=== PATIENT | male | born 1935 | race Caucasian/White ===

== ENCOUNTER 2017-09-01 06:38 | Inpatient (IN) | payer MEDICARE, OTHER ==
[~2017-09-01] VITALS: Ht 182.9 cm; Wt 77.1 kg
[2017-09-01] MEDS ORDERED: Morphine Sulfate 4mg/ml Inj IVP ONE ×3 (07:00→10:30)
--- NOTE | 2017-09-01 07:26 | Emergency Room Report ---
History of Present Illness General Chief Complaint: Pain Source: Patient Present Illness HPI 81-year-old male, history of Crohn's disease/ulcerative colitis, with colostomy for a very long time, presenting with 3 days of generalized body pain. Patient complaining of abdominal pain, as well as left-sided back pain radiating down to left leg. Does not know if he has had fever or chills. States that he has been eating less. Complains of nausea but no vomiting. No diarrhea. Denies any chest pain or shortness of breath. No numbness or tingling of his legs. States that his left back hurts more when he moves. However has still been able to walk. No history of IV drug abuse. No urinary retention. No saddle anesthesia. No trauma Allergies: Coded Allergies: No Known Allergies (Unverified , 09/01/17) Patient History Past Medical History: see triage record Past Surgical History: none Pertinent Family History: none Reviewed Nursing Documentation: PMH: Agreed, PSxH: Agreed Nursing Documentation-PMH Past Medical History: No History, Except For Review of Systems All Other Systems: negative except mentioned in HPI Physical Exam Vital Signs Date Time Temp Pulse Resp B/P (MAP) Pulse Ox O2 Delivery O2 Flow Rate FiO2 09/01/17 06:34 64 18 164/82 98 Room Air Sp02 EP Interpretation: reviewed, normal General Appearance: alert, GCS 15, non-toxic, mild distress Head: normocephalic, atraumatic Eyes: bilateral eye normal inspection, bilateral eye PERRL, bilateral eye EOMI ENT: normal ENT inspection, normal pharynx, normal voice, moist mucus membranes Neck: normal inspection, full range of motion, supple Respiratory: normal inspection, lungs clear, normal breath sounds, no respiratory distress, no retraction, no wheezing, speaking full sentences, chest symmetrical Cardiovascular #1: normal inspection, regular rate, rhythm, no edema, normal capillary refill Cardiovascular #2: 2+ radial (R), 2+ radial (L) Gastrointestinal: other - Soft abdomen, and generalized tenderness, normal bowel sounds, colostomy noted in left abdomen Genitourinary: no CVA tenderness Musculoskeletal: other - Left-sided paraspinal lower lumbar tenderness, no midline tenderness, limited range of motion of the left hip secondary to pain Neurologic: alert, oriented x3, responsive, motor strength/tone normal, other - cannot assess gait as pt in too much pain Psychiatric: normal inspection, judgement/insight normal, memory normal Skin: normal inspection, normal color, no rash, warm/dry, well hydrated, normal turgor Medical Decision Making Diagnostic Impression: Primary Impression: Generalized pain Additional Impressions: Abdominal pain Back pain ER Course 81-year-old male with abdominal pain and back pain Differential Diagnosis: Gastritis, gastroenteritis, cholecystitis, appendicitis, diverticulitis, SBO, mesenteric ischemia, cardiac, UTI/pyelo, AAA musculoskeletal back pain vs. muscular strain vs. sciatica vs Lumbar/hip fracture Serious diagnoses such as cord compression, cauda equina, epidural abscess less likely in this patient given the clinical scenario and abscess of neurological symptoms or findings. Patient appears nontoxic. Plan: Basic labs, ua, ekg pain control, IVF CT abdopelvis ER course: Patient has remained HD stable during ED stay. remains aox3, just complaining of generalized pain attempted to perform CT scan however patient will not lie flat for procedure. attempted x 2 to get scan but patient not cooperative despitre given pain medications US performed - no AAA given NS with K IV Disposition: Patient will be admitted to med surg. Discussed with hospitalist Dr Chin Please note that this Emergency Department Report was dictated using [employer] helper technology software, occasionally this can lead to erroneous entry secondary to interpretation by the dictation equipment EKG Diagnostic Results EP Interpretation: Yes Rate: normal Rhythm: NSR ST Segments: No acute changes ASA given to patient: No Rhythm Strip EP Interpretation: Yes Rate: 70 Rhythm: NSR, no PVCs, no ectopy Chest X-ray CXR: Ordered: Yes 1 view Indication: Chest pain EP interpretation: Yes Interpretation: No consolidation, no effusion, no PTX, no acute cardiopulmonary disease Impression: No acute disease Electronically signed by Baldemar Patel MD Laboratory Tests Test 09/01/17 07:00 09/01/17 10:34 White Blood Count 8.5 K/UL (4.8-10.8) Red Blood Count 4.85 M/UL (4.70-6.10) Hemoglobin 16.1 G/DL (14.2-18.0) Hematocrit 49.0 % (42.0-52.0) Mean Corpuscular Volume 101 FL (80-99) H Mean Corpuscular Hemoglobin 33.1 PG (27.0-31.0) H Mean Corpuscular Hemoglobin Concent 32.8 G/DL (32.0-36.0) Red Cell Distribution Width 12.6 % (11.6-14.8) Platelet Count 139 K/UL (150-450) L Mean Platelet Volume 9.5 FL (6.5-10.1) Neutrophils (%) (Auto) % (45.0-75.0) Lymphocytes (%) (Auto) % (20.0-45.0) Monocytes (%) (Auto) % (1.0-10.0) Eosinophils (%) (Auto) % (0.0-3.0) Basophils (%) (Auto) % (0.0-2.0) Differential Total Cells Counted 100 Neutrophils % (Manual) 89 % (45-75) H Lymphocytes % (Manual) 6 % (20-45) L Monocytes % (Manual) 5 % (1-10) Eosinophils % (Manual) 0 % (0-3) Basophils % (Manual) 0 % (0-2) Band Neutrophils 0 % (0-8) Platelet Estimate Decreased L Platelet Morphology Normal Macrocytosis 1+ Sodium Level 146 MMOL/L (136-145) H Potassium Level 2.7 MMOL/L (3.5-5.1) *L Chloride Level 112 MMOL/L (98-107) H Carbon Dioxide Level 23 MMOL/L (21-32) Anion Gap 11 mmol/L (5-15) Blood Urea Nitrogen 9 mg/dL (7-18) Creatinine 0.8 MG/DL (0.55-1.30) Estimate Glomerular Filtration Rate mL/min (>60) Glucose Level 128 MG/DL (74-106) H Calcium Level 6.6 MG/DL (8.5-10.1) L Total Bilirubin 0.4 MG/DL (0.2-1.0) Aspartate Amino Transferase (AST) 16 U/L (15-37) Alanine Aminotransferase (ALT) 13 U/L (12-78) Alkaline Phosphatase 51 U/L (46-116) Troponin I 0.000 ng/mL (0.000-0.056) Total Protein 6.0 G/DL (6.4-8.2) L Albumin 2.9 G/DL (3.4-5.0) L Globulin 3.1 g/dL Albumin/Globulin Ratio 0.9 (1.0-2.7) L Lipase 47 U/L (73-393) L Urine Color Pale yellow Urine Appearance Clear Urine pH 6.5 (4.5-8.0) Urine Specific [place] 1.015 (1.005-1.035) Urine Protein 2+ (NEGATIVE) H Urine Glucose (UA) Negative (NEGATIVE) Urine Ketones Negative (NEGATIVE) Urine Occult Blood 2+ (NEGATIVE) H Urine Nitrite Negative (NEGATIVE) Urine Bilirubin Negative (NEGATIVE) Urine Urobilinogen Normal MG/DL (0.0-1.0) Urine Leukocyte Esterase Negative (NEGATIVE) Urine RBC 10-15 /HPF (0 - 0) H Urine WBC 0-2 /HPF (0 - 0) Urine Squamous Epithelial Cells Occasional /LPF Urine Bacteria Occasional /HPF (NONE) CT/MRI/US Diagnostic Results CT/MRI/US Diagnostic Results : Imaging Test Ordered: US aorta Impression Findings: The aorta is mildly ectatic and shows mural calcification and irregularity. Maximum diameter of the aorta is 2.7 cm distally. The area of the aortic bifurcation is not visualized due to bowel gas. The visualized portions of the common iliac arteries appear normal in caliber. IMPRESSION: Atherosclerotic vascular disease. No definite aneurysm with some limitations as discussed above. Last Vital Signs Date Time Temp Pulse Resp B/P (MAP) Pulse Ox O2 Delivery O2 Flow Rate FiO2 09/01/17 06:34 64 18 164/82 98 Room Air Disposition: ADMITTED INPATIENT Condition: Serious Scripts Unable to Obtain Active Prescriptions or Reported Meds Baldemar Patel M.D. Sep 01, 2017 07:25
[2017-09-01 07:42] LABS: HEMOGLOBIN 16.1 G/DL (14.2-18.0); MEAN CORPUSCULAR VOLUME 101 FL (80-99); PLATELET COUNT 139 K/UL (150-450); RED BLOOD COUNT 4.85 M/UL (4.70-6.10); RED CELL DISTRIBUTION WIDTH 12.6 % (11.6-14.8); WHITE BLOOD COUNT 8.5 K/UL (4.8-10.8)
[2017-09-01 07:44] VITALS: BP 162/92
[2017-09-01 07:57] LABS: ALANINE AMINOTRANSFERASE 13 U/L (12-78); ALBUMIN 2.9 G/DL (3.4-5.0); ALBUMIN/GLOBULIN RATIO 0.9 (1.0-2.7); ALKALINE PHOSPHATASE 51 U/L (46-116); ANION GAP 11 mmol/L (5-15); ASPARTATE AMINO TRANSFERASE 16 U/L (15-37); BILIRUBIN,TOTAL 0.4 MG/DL (0.2-1.0); BLOOD UREA NITROGEN 9 mg/dL (7-18); CALCIUM 6.6 MG/DL (8.5-10.1); CARBON DIOXIDE 23 MMOL/L (21-32); CHLORIDE 112 MMOL/L (98-107); CREATININE 0.8 MG/DL (0.55-1.30); POTASSIUM 2.7 MMOL/L (3.5-5.1); SODIUM 146 MMOL/L (136-145)
[2017-09-01] MEDS: NS w/KCl 20mEq 1,000 ML IV SCH ×2 (08:40→09:41)
[2017-09-01] MEDS ORDERED: Methocarbamol 750mg tab ORAL ONE (09:00)
--- NOTE | 2017-09-01 10:06 | Diagnostic Imaging Report ---
Indication: Chest pain Comparison: None A single view chest radiograph was obtained. Findings: No definite infiltrate or pulmonary vascular congestion identified. The heart is normal in size. The aorta is mildly enlarged consistent with atherosclerotic vascular disease. The bones are osteopenic. Impression: No acute disease
[2017-09-01 10:45] LABS: APPEARANCE,URINE CLEAR; BILIRUBIN, URINE NEGATIVE (NEGATIVE); COLOR,URINE PALE YELLOW; GLUCOSE, URINE (UA) NEGATIVE (NEGATIVE); KETONES,URINE NEGATIVE (NEGATIVE); LEUKOCYTE ESTERASE ,URINE NEGATIVE (NEGATIVE); NITRITE,URINE NEGATIVE (NEGATIVE); PH,URINE 6.5 (4.5-8.0); PROTEIN,URINE 2+ (NEGATIVE); UROBILINOGEN,URINE NORMAL MG/DL (0.0-1.0)
--- NOTE | 2017-09-01 12:14 | Diagnostic Imaging Report ---
Indication:Abdominal pain Technique: Grayscale and duplex Doppler imaging of the abdominal aorta performed. Comparison: None Findings: The aorta is mildly ectatic and shows mural calcification and irregularity. Maximum diameter of the aorta is 2.7 cm distally. The area of the aortic bifurcation is not visualized due to bowel gas. The visualized portions of the common iliac arteries appear normal in caliber. IMPRESSION: Atherosclerotic vascular disease. No definite aneurysm with some limitations as discussed above.
[2017-09-01 13:48] VITALS: BP 118/99
[2017-09-01] MEDS ORDERED: Miralax 17gm pkt ORAL PRN (15:00)
[2017-09-01] MEDS ORDERED: Mylanta II UD 30ml ORAL PRN (15:00)
[2017-09-01 15:48] VITALS: BP 153/77
[2017-09-01] MEDS: Morphine Sulfate 2mg/ml Inj IVP PRN (17:15)
--- NOTE | 2017-09-01 18:00 | History and Physical ---
History of Present Illness General Date patient seen: Sep 01, 2017 Reason for Hospitalization: Pain Present Illness HPI 81-year-old male with history of Crohn's disease/ulcerative colitis, with colectomy and colostomy for a very long time, presenting with 3 days of generalized body pain. Patient complaining of abdominal pain, as well as left- sided back pain radiating down to left leg. States that he has been eating less. Complains of nausea but no vomiting. No diarrhea. Denies any chest pain or shortness of breath. No numbness or tingling of his legs. States that his left back hurts more when he moves. However has still been able to walk. No history of IV drug abuse. No urinary retention. No saddle anesthesia. No trauma Allergies: Coded Allergies: No Known Allergies (Unverified , 09/01/17) Medication History Unable to Obtain Active Prescriptions or Reported Meds Patient History Healthcare decision maker Resuscitation status Full Code Advanced Directive on File Past Medical/Surgical History Past Medical/Surgical History: (1) Severe malnutrition (2) History of Crohn's disease Review of Systems Constitutional: Reports: malaise, weakness Gastrointestinal: Reports: abdominal pain Physical Exam General Appearance: cachetic Lines, tubes and drains: peripheral HEENT: normocephalic, atraumatic Neck: non-tender, normal alignment Respiratory/Chest: chest wall non-tender, lungs clear Breasts: no masses Cardiovascular/Chest: normal peripheral pulses Abdomen: normal bowel sounds, non tender Genitourinary/Rectal: normal genital exam Extremities: normal range of motion Skin Exam: normal pigmentation Last 24 Hour Vital Signs Date Time Temp Pulse Resp B/P (MAP) Pulse Ox O2 Delivery O2 Flow Rate FiO2 09/01/17 17:15 98.1 09/01/17 15:48 98.1 69 20 153/77 97 09/01/17 14:09 71 14 118/99 98 Room Air 09/01/17 13:48 71 14 118/99 98 Room Air 09/01/17 07:44 71 15 162/92 98 Room Air 09/01/17 06:34 64 18 164/82 98 Room Air Laboratory Tests Test 09/01/17 07:00 09/01/17 10:34 White Blood Count 8.5 K/UL (4.8-10.8) Red Blood Count 4.85 M/UL (4.70-6.10) Hemoglobin 16.1 G/DL (14.2-18.0) Hematocrit 49.0 % (42.0-52.0) Mean Corpuscular Volume 101 FL (80-99) H Mean Corpuscular Hemoglobin 33.1 PG (27.0-31.0) H Mean Corpuscular Hemoglobin Concent 32.8 G/DL (32.0-36.0) Red Cell Distribution Width 12.6 % (11.6-14.8) Platelet Count 139 K/UL (150-450) L Mean Platelet Volume 9.5 FL (6.5-10.1) Neutrophils (%) (Auto) % (45.0-75.0) Lymphocytes (%) (Auto) % (20.0-45.0) Monocytes (%) (Auto) % (1.0-10.0) Eosinophils (%) (Auto) % (0.0-3.0) Basophils (%) (Auto) % (0.0-2.0) Differential Total Cells Counted 100 Neutrophils % (Manual) 89 % (45-75) H Lymphocytes % (Manual) 6 % (20-45) L Monocytes % (Manual) 5 % (1-10) Eosinophils % (Manual) 0 % (0-3) Basophils % (Manual) 0 % (0-2) Band Neutrophils 0 % (0-8) Platelet Estimate Decreased L Platelet Morphology Normal Macrocytosis 1+ Sodium Level 146 MMOL/L (136-145) H Potassium Level 2.7 MMOL/L (3.5-5.1) *L Chloride Level 112 MMOL/L (98-107) H Carbon Dioxide Level 23 MMOL/L (21-32) Anion Gap 11 mmol/L (5-15) Blood Urea Nitrogen 9 mg/dL (7-18) Creatinine 0.8 MG/DL (0.55-1.30) Estimat Glomerular Filtration Rate mL/min (>60) Glucose Level 128 MG/DL (74-106) H Calcium Level 6.6 MG/DL (8.5-10.1) L Total Bilirubin 0.4 MG/DL (0.2-1.0) Aspartate Amino Transf (AST/SGOT) 16 U/L (15-37) Alanine Aminotransferase (ALT/SGPT) 13 U/L (12-78) Alkaline Phosphatase 51 U/L (46-116) Troponin I 0.000 ng/mL (0.000-0.056) Total Protein 6.0 G/DL (6.4-8.2) L Albumin 2.9 G/DL (3.4-5.0) L Globulin 3.1 g/dL Albumin/Globulin Ratio 0.9 (1.0-2.7) L Lipase 47 U/L (73-393) L Urine Color Pale yellow Urine Appearance Clear Urine pH 6.5 (4.5-8.0) Urine Specific [place] 1.015 (1.005-1.035) Urine Protein 2+ (NEGATIVE) H Urine Glucose (UA) Negative (NEGATIVE) Urine Ketones Negative (NEGATIVE) Urine Occult Blood 2+ (NEGATIVE) H Urine Nitrite Negative (NEGATIVE) Urine Bilirubin Negative (NEGATIVE) Urine Urobilinogen Normal MG/DL (0.0-1.0) Urine Leukocyte Esterase Negative (NEGATIVE) Urine RBC 10-15 /HPF (0 - 0) H Urine WBC 0-2 /HPF (0 - 0) Urine Squamous Epithelial Cells Occasional /LPF Urine Bacteria Occasional /HPF (NONE) Height (Feet): 6 Height (Inches): 0.00 Weight (Pounds): 170 Medications Current Medications Medications (Trade) Dose Ordered Sig/Curtis Route PRN Reason Start Time Stop Time Status Last Admin Dose Admin Acetaminophen (Tylenol) 650 mg Q4H PRN ORAL fever 09/01/17 15:00 10/01/17 14:59 Al Hydroxide/Mg Hydroxide (Mylanta II) 30 ml Q6H PRN ORAL dyspepsia 09/01/17 15:00 10/01/17 14:59 Dextrose (Dextrose 50%) STAT PRN IV Hypoglycemia 09/01/17 15:00 10/01/17 14:59 Lorazepam (Ativan 2mg/ml 1ml) 0.5 mg Q4H PRN IV For Anxiety 09/01/17 15:00 09/08/17 14:59 Morphine Sulfate (Morphine Sulfate) 1 mg Q4H PRN IVP Moderate to Severe Pain 09/01/17 15:00 09/08/17 14:59 09/01/17 17:15 Ondansetron HCl (Zofran) 4 mg Q6H PRN IVP Nausea & Vomiting 09/01/17 15:00 10/01/17 14:59 09/01/17 15:59 Polyethylene Glycol (Miralax) 17 gm HSPRN PRN ORAL Constipation 09/01/17 15:00 10/01/17 14:59 Zolpidem Tartrate (Ambien) 5 mg HSPRN PRN ORAL Insomnia 09/01/17 15:00 09/08/17 14:59 Assessment/Plan Problem List: (1) Abdominal pain ICD Codes: R10.9 - Unspecified abdominal pain SNOMED: 25483142 (2) Severe malnutrition ICD Codes: E43 - Unspecified severe protein-calorie malnutrition SNOMED: 56256384 (3) History of Crohn's disease ICD Codes: Z87.19 - Personal history of other diseases of the digestive system SNOMED: 858861410867227 Assessment/Plan npo Iv fluids GI evaluation symptomatic treatment CIELO ORTIZ Sep 01, 2017 17:59
[2017-09-01 19:40] VITALS: BP 154/88
[2017-09-01 23:23] VITALS: BP 134/63
[2017-09-02] MEDS: Morphine Sulfate 2mg/ml Inj IVP PRN (00:47)
[2017-09-02] MEDS: Zolpidem 5mg tab ORAL PRN ×2 (03:04→22:13)
[2017-09-02 04:00] VITALS: BP 149/83
[2017-09-02 07:18] LABS: BASOPHILS % (AUTO) 0.3 % (0.0-2.0); EOSINOPHILS % (AUTO) 0.6 % (0.0-3.0); HEMATOCRIT 44.4 % (42.0-52.0); HEMOGLOBIN 15.3 G/DL (14.2-18.0); LYMPHOCYTES % (AUTO) 12.2 % (20.0-45.0); MEAN CORPUSCULAR VOLUME 100 FL (80-99); MONOCYTES % (AUTO) 12.9 % (1.0-10.0); NEUTROPHILS % (AUTO) 73.9 % (45.0-75.0); PLATELET COUNT 166 K/UL (150-450); RED BLOOD COUNT 4.44 M/UL (4.70-6.10); RED CELL DISTRIBUTION WIDTH 12.5 % (11.6-14.8)
[2017-09-02 07:38] LABS: ALANINE AMINOTRANSFERASE 15 U/L (12-78); ALBUMIN 3.6 G/DL (3.4-5.0); ALBUMIN/GLOBULIN RATIO 0.9 (1.0-2.7); ALKALINE PHOSPHATASE 62 U/L (46-116); ANION GAP 9 mmol/L (5-15); ASPARTATE AMINO TRANSFERASE 23 U/L (15-37); BILIRUBIN,TOTAL 0.9 MG/DL (0.2-1.0); BLOOD UREA NITROGEN 15 mg/dL (7-18); CALCIUM 9.2 MG/DL (8.5-10.1); CARBON DIOXIDE 28 MMOL/L (21-32); CHLORIDE 102 MMOL/L (98-107); CHOLESTEROL 187 MG/DL (< 200); CREATININE 1.1 MG/DL (0.55-1.30); HDL CHOLESTEROL 64 MG/DL (40-60); POTASSIUM 3.3 MMOL/L (3.5-5.1); SODIUM 139 MMOL/L (136-145); TRIGLYCERIDES 99 MG/DL (30-150)
[2017-09-02 08:09] VITALS: BP 103/60
[2017-09-02] MEDS ORDERED: Levofloxacin 500mg tab ORAL ONE (09:36)
[2017-09-02 11:47] VITALS: BP 122/61
[2017-09-02 15:27] VITALS: BP 100/51
--- NOTE | 2017-09-02 15:35 | GI Initial Consult Note ---
Amanda Beckford N.P. 09/02/17 1535: History of Present Illness General Date patient seen: Sep 02, 2017 Time patient seen: 15:18 Reason for Hospitalization: Pain Referring physician: CIELO TOHRNE Reason for Consultation: CROHNS Present Illness HPI 81-year-old male, history of Crohn's disease/ulcerative colitis, with colostomy for a very long time, presenting with 3 days of generalized body pain. Patient complaining of abdominal pain, as well as left-sided back pain radiating down to left leg. Does not know if he has had fever or chills. States that he has been eating less. Complains of nausea but no vomiting. No diarrhea. Denies any chest pain or shortness of breath. No numbness or tingling of his legs. States that his left back hurts more when he moves. However has still been able to walk. No history of IV drug abuse. No urinary retention. No saddle anesthesia. No trauma. GI consulted for crohn's/ulcerative. Pt seen on floor, awake A&Ox4 NAD with no active s/sx of N/V/D. Stated he had excruciating generalized pain yesterday that made him crunch up into a position. Patient was unable to localize the source of pain and stated it was all over. He has a history of Crohn's vs UC, but has had a total colectomy s/p ileostomy placement. Abdomen assessed with noted ventral hernias. Abdominal U/S was performed, negative for AAA. In addition the patient c/o of poor PO intake, states that when he eats he becomes nauseated and vomits his food. Has problems urinating. Patient does not take any medication except for his HTN. Home Meds Unable to Obtain Active Prescriptions or Reported Meds Med list reviewed/reconciled: Yes Allergies: Coded Allergies: No Known Allergies (Unverified , 09/01/17) Patient History History Provided By: Patient, Medical Record PMH Narrative Past Medical History: see triage record Past Surgical History: none Pertinent Family History: none Reviewed Nursing Documentation: PMH: Agreed, PSxH: Agreed Nursing Documentation-PMH Past Medical History: No History, Except For Social History: Denies: smoking, alcohol use, drug use, other Review of Systems All Other Systems: negative except mentioned in HPI Physical Exam Vital Signs Date Time Temp Pulse Resp B/P (MAP) Pulse Ox O2 Delivery O2 Flow Rate FiO2 09/01/17 06:34 64 18 164/82 98 Room Air 09/01/17 15:00 98.1 Sp02 EP Interpretation: reviewed, normal Labs Laboratory Tests Test 09/02/17 04:55 White Blood Count 11.0 K/UL (4.8-10.8) H Red Blood Count 4.44 M/UL (4.70-6.10) L Hemoglobin 15.3 G/DL (14.2-18.0) Hematocrit 44.4 % (42.0-52.0) Mean Corpuscular Volume 100 FL (80-99) H Mean Corpuscular Hemoglobin 34.4 PG (27.0-31.0) H Mean Corpuscular Hemoglobin Concent 34.4 G/DL (32.0-36.0) Red Cell Distribution Width 12.5 % (11.6-14.8) Platelet Count 166 K/UL (150-450) Mean Platelet Volume 9.2 FL (6.5-10.1) Neutrophils (%) (Auto) 73.9 % (45.0-75.0) Lymphocytes (%) (Auto) 12.2 % (20.0-45.0) L Monocytes (%) (Auto) 12.9 % (1.0-10.0) H Eosinophils (%) (Auto) 0.6 % (0.0-3.0) Basophils (%) (Auto) 0.3 % (0.0-2.0) Sodium Level 139 MMOL/L (136-145) Potassium Level 3.3 MMOL/L (3.5-5.1) L Chloride Level 102 MMOL/L (98-107) Carbon Dioxide Level 28 MMOL/L (21-32) Anion Gap 9 mmol/L (5-15) Blood Urea Nitrogen 15 mg/dL (7-18) Creatinine 1.1 MG/DL (0.55-1.30) Estimat Glomerular Filtration Rate mL/min (>60) Glucose Level 116 MG/DL (74-106) H Calcium Level 9.2 MG/DL (8.5-10.1) # Total Bilirubin 0.9 MG/DL (0.2-1.0) Aspartate Amino Transf (AST/SGOT) 23 U/L (15-37) Alanine Aminotransferase (ALT/SGPT) 15 U/L (12-78) Alkaline Phosphatase 62 U/L (46-116) Total Protein 7.7 G/DL (6.4-8.2) Albumin 3.6 G/DL (3.4-5.0) Globulin 4.1 g/dL Albumin/Globulin Ratio 0.9 (1.0-2.7) L Triglycerides Level 99 MG/DL (30-150) Cholesterol Level 187 MG/DL (< 200) LDL Cholesterol 113 mg/dL (<100) H HDL Cholesterol 64 MG/DL (40-60) H Cholesterol/HDL Ratio 2.9 (3.3-4.4) L Thyroid Stimulating Hormone (TSH) 0.329 uiU/mL (0.358-3.740) General Appearance: well appearing, no apparent distress, alert, thin Head: normocephalic EENT: PERRL/EOMI, normal ENT inspection Neck: supple Respiratory: normal breath sounds, no respiratory distress Cardiovascular: normal rate Gastrointestinal: normal inspection, non tender, soft, normal bowel sounds, non -distended, other - ileostomy Rectal: deferred Genitourinary: deferred Musculoskeletal: normal inspection, back normal Neurologic: normal inspection, alert, oriented x3, responsive Psychiatric: normal inspection, judgement/insight normal, memory normal Skin: normal inspection, normal color, no rash, warm/dry, palpation normal, well hydrated Lymphatic: normal inspection, no adenopathy Current Medications Current Medications Medications (Trade) Dose Ordered Sig/Curtis Route PRN Reason Start Time Stop Time Status Last Admin Dose Admin Acetaminophen (Tylenol) 650 mg Q4H PRN ORAL fever 09/01/17 15:00 10/01/17 14:59 Acetaminophen (Tylenol) 650 mg Q6H PRN ORAL Mild Pain (Pain Scale 1-3) 09/02/17 11:15 10/02/17 11:14 09/02/17 11:48 Al Hydroxide/Mg Hydroxide (Mylanta II) 30 ml Q6H PRN ORAL dyspepsia 09/01/17 15:00 10/01/17 14:59 Dextrose (Dextrose 50%) STAT PRN IV Hypoglycemia 09/01/17 15:00 10/01/17 14:59 Lorazepam (Ativan 2mg/ml 1ml) 0.5 mg Q4H PRN IV For Anxiety 09/01/17 15:00 09/08/17 14:59 Morphine Sulfate (Morphine Sulfate) 1 mg Q4H PRN IVP Moderate to Severe Pain 09/01/17 15:00 09/08/17 14:59 09/02/17 00:47 Ondansetron HCl (Zofran) 4 mg Q6H PRN IVP Nausea & Vomiting 09/01/17 15:00 10/01/17 14:59 09/01/17 15:59 Polyethylene Glycol (Miralax) 17 gm HSPRN PRN ORAL Constipation 09/01/17 15:00 10/01/17 14:59 Zolpidem Tartrate (Ambien) 5 mg HSPRN PRN ORAL Insomnia 09/01/17 15:00 09/08/17 14:59 09/02/17 03:04 GI: Plan Problems: (1) Ileostomy present (2) History of Crohn's disease (3) Generalized pain (4) Severe malnutrition (5) Electrolyte imbalance Plan abdominal U/S reviewed >> unremarkable hx of crohns vs UC s/p total colectomy with ileostomy placement symptomatic treatment pain mgmt ST evaluation for poor PO intake PT eval ileostomy care daily/prn ppi regular diet fu labs, CEA, PSA, CRP, ESR Discussed with Dr. Tapia. Thank you for this patient referral, we will follow. SAKSHI TAPIA 09/03/17 1055: History of Present Illness General Reason for Hospitalization: Pain Present Illness Home Meds Unable to Obtain Active Prescriptions or Reported Meds Allergies: Coded Allergies: No Known Allergies (Unverified , 09/01/17) GI: Plan Plan The patient was seen and examined at bedside and all new and available data was reviewed in the patients chart. I agree with the above findings, impression and plan. (Patient seen earlier today. Signature stamp does not reflect patient encounter time.). - MD Analy Saldaña Anh Guillermo N.PRima Sep 02, 2017 15:35 SAKSHI TAPIA Sep 03, 2017 10:55
--- NOTE | 2017-09-02 16:30 | Pulmonology Progress Note ---
Assessment/Plan Problems: (1) Abdominal pain (2) Generalized pain (3) History of Crohn's disease (4) Severe malnutrition (5) Electrolyte imbalance Assessment/Plan GI evaluation appreciated CT abdomen ordered. K supplement Pt/ot Subjective ROS Limited/Unobtainable: No Interval Events: no new complains Allergies: Coded Allergies: No Known Allergies (Unverified , 09/01/17) Objective Last 24 Hour Vital Signs Date Time Temp Pulse Resp B/P (MAP) Pulse Ox O2 Delivery O2 Flow Rate FiO2 09/02/17 15:27 97.5 79 20 100/51 97 09/02/17 12:47 98.1 09/02/17 11:48 98.1 09/02/17 11:47 98.2 69 20 122/61 96 09/02/17 08:09 98.1 60 20 103/60 98 09/02/17 04:00 98.4 65 20 149/83 96 Room Air 09/02/17 01:17 97.7 09/02/17 00:47 97.7 09/01/17 23:23 97.7 60 20 134/63 97 09/01/17 19:40 96.8 72 20 154/88 97 Room Air 09/01/17 17:15 98.1 Intake and Output 09/01/17 09/02/17 19:00 07:00 Intake Total 0 ml Output Total 900 ml 675 ml Balance -900 ml -675 ml Intake Oral 0 ml Output Urine Total 900 ml 575 ml Stool Total 100 ml Objective General Appearance: no apparent distress Head: normocephalic, atraumatic Eyes: bilateral eye PERRL, bilateral eye EOMI ENT: normal pharynx, no angioedema Neck: supple, thyroid normal Respiratory: lungs clear, normal breath sounds Cardiovascular #1: regular rate, rhythm Gastrointestinal: non tender, soft, colostomy present ext: no c/c/e Laboratory Tests 09/02/17 04:55: White Blood Count 11.0H, Red Blood Count 4.44L, Hemoglobin 15.3, Hematocrit 44.4 , Mean Corpuscular Volume 100H, Mean Corpuscular Hemoglobin 34.4H, Mean Corpuscular Hemoglobin Concent 34.4, Red Cell Distribution Width 12.5, Platelet Count 166, Mean Platelet Volume 9.2, Neutrophils (%) (Auto) 73.9, Lymphocytes (% ) (Auto) 12.2L, Monocytes (%) (Auto) 12.9H, Eosinophils (%) (Auto) 0.6, Basophils (%) (Auto) 0.3, Sodium Level 139, Potassium Level 3.3L, Chloride Level 102, Carbon Dioxide Level 28, Anion Gap 9, Blood Urea Nitrogen 15, Creatinine 1.1, Estimat Glomerular Filtration Rate , Glucose Level 116H, Calcium Level 9.2#, Total Bilirubin 0.9, Aspartate Amino Transf (AST/SGOT) 23, Alanine Aminotransferase (ALT/SGPT) 15, Alkaline Phosphatase 62, Total Protein 7.7, Albumin 3.6, Globulin 4.1, Albumin/Globulin Ratio 0.9L, Triglycerides Level 99, Cholesterol Level 187, LDL Cholesterol 113H, HDL Cholesterol 64H, Cholesterol/HDL Ratio 2.9L, Thyroid Stimulating Hormone (TSH) 0.329L Current Medications Medications (Trade) Dose Ordered Sig/Curtis Route PRN Reason Start Time Stop Time Status Last Admin Dose Admin Acetaminophen (Tylenol) 650 mg Q4H PRN ORAL fever 09/01/17 15:00 10/01/17 14:59 Acetaminophen (Tylenol) 650 mg Q6H PRN ORAL Mild Pain (Pain Scale 1-3) 09/02/17 11:15 10/02/17 11:14 09/02/17 11:48 Al Hydroxide/Mg Hydroxide (Mylanta II) 30 ml Q6H PRN ORAL dyspepsia 09/01/17 15:00 10/01/17 14:59 Dextrose (Dextrose 50%) STAT PRN IV Hypoglycemia 09/01/17 15:00 10/01/17 14:59 Lorazepam (Ativan 2mg/ml 1ml) 0.5 mg Q4H PRN IV For Anxiety 09/01/17 15:00 09/08/17 14:59 Morphine Sulfate (Morphine Sulfate) 1 mg Q4H PRN IVP Moderate to Severe Pain 09/01/17 15:00 09/08/17 14:59 09/02/17 00:47 Ondansetron HCl (Zofran) 4 mg Q6H PRN IVP Nausea & Vomiting 09/01/17 15:00 10/01/17 14:59 09/01/17 15:59 Polyethylene Glycol (Miralax) 17 gm HSPRN PRN ORAL Constipation 09/01/17 15:00 10/01/17 14:59 Potassium Chloride (K-Dur) 40 meq DAILY ORAL 09/03/17 09:00 10/03/17 08:59 Zolpidem Tartrate (Ambien) 5 mg HSPRN PRN ORAL Insomnia 09/01/17 15:00 09/08/17 14:59 09/02/17 03:04 CIELO ORTIZ Sep 02, 2017 16:30
--- NOTE | 2017-09-02 17:05 | Cardiology Report ---
APPROVED REPORT EKG Measurement Heart [id number] Normal sinus rhythm with sinus arrhythmia Normal ECG
[2017-09-02] MEDS: LORazepam Inj 2mg/ml 1ml IV PRN (17:13)
[2017-09-02 19:53] VITALS: BP 114/59
--- NOTE | 2017-09-02 20:18 | Wound Care Consultation ---
Wound Assessment Wound Assessment : Wound Number: 1 Wound Present on Admission: Yes New Wound: No Status Change of Wound: No Wound Location Body Site Modif: mid Wound Location Body Site: coccyx Wound Type: pressure ulcer Yane Test: Does not Yane Pressure Ulcer Stage: Deep Tissue Injury Wound Thickness: Full Thickness Wound Length: 3.0 Wound Width: 3.0 Wound Depth: utd Percent of Wound [place]/Red: 100 Wound Drainage Amount: None Wound Drainage Odor: None/Absent Tissue Surrounding Wound: Intact Wound General Appearance: Reddened - deep red Wound Comment #1 Coccyx area SDTI pressure ulcer Recommendation -Local wound care per protocol -Keep clean and dry -Offload both heels -Heel protector on both heels -Low air loss mattress -Optimize nutrition -Turn and reposition -Assess and f/u accordingly for any changes FREDY FOWLER RN Sep 02, 2017 20:18
[2017-09-03] VITALS: BP 109/58
[2017-09-03 04:00] VITALS: BP 103/65
[2017-09-03 07:29] LABS: AMYLASE 40 U/L (10-110)
[2017-09-03 07:43] LABS: ANION GAP 10 mmol/L (5-15); BLOOD UREA NITROGEN 27 mg/dL (7-18); CALCIUM 9.7 MG/DL (8.5-10.1); CARBON DIOXIDE 28 MMOL/L (21-32); CHLORIDE 98 MMOL/L (98-107); CREATININE 1.4 MG/DL (0.55-1.30); PHOSPHORUS 2.6 MG/DL (2.5-4.9); POTASSIUM 3.4 MMOL/L (3.5-5.1); SODIUM 136 MMOL/L (136-145)
[2017-09-03 07:44] LABS: ALANINE AMINOTRANSFERASE 16 U/L (12-78); ALBUMIN 3.6 G/DL (3.4-5.0); ALBUMIN/GLOBULIN RATIO 0.8 (1.0-2.7); ALKALINE PHOSPHATASE 65 U/L (46-116); ASPARTATE AMINO TRANSFERASE 24 U/L (15-37); BASOPHILS % (AUTO) 1.3 % (0.0-2.0); BILIRUBIN,TOTAL 0.7 MG/DL (0.2-1.0); EOSINOPHILS % (AUTO) 5.6 % (0.0-3.0); HEMATOCRIT 47.2 % (42.0-52.0); HEMOGLOBIN 15.8 G/DL (14.2-18.0); LYMPHOCYTES % (AUTO) 22.5 % (20.0-45.0); MEAN CORPUSCULAR VOLUME 100 FL (80-99); MONOCYTES % (AUTO) 11.4 % (1.0-10.0); NEUTROPHILS % (AUTO) 59.2 % (45.0-75.0); PLATELET COUNT 151 K/UL (150-450); RED BLOOD COUNT 4.71 M/UL (4.70-6.10); RED CELL DISTRIBUTION WIDTH 12.5 % (11.6-14.8); WHITE BLOOD COUNT 10.1 K/UL (4.8-10.8)
[2017-09-03 08:00] VITALS: BP 104/63
[2017-09-03] MEDS: LORazepam Inj 2mg/ml 1ml IV PRN (09:56)
--- NOTE | 2017-09-03 11:42 | Diagnostic Imaging Report ---
Indication: Back pain Technique: Continuous helical transaxial imaging of the lumbar spine was obtained from the lung bases to the pubic symphysis. No IV contrast was administered. Coronal 2-D reformats were also obtained. Study obtained in a Siemens sensation [address] Total Dose length Product (DLP): [address] Dose Index Volume (CTDIvol): 0.15, 13.01 mGy Comparison: None Findings: There is no evidence of an acute fracture or malalignment. Vertebral endplate and facet spur formation and hypertrophy demonstrated. Minimal anterolisthesis present at L4-5. Narrowing of intervertebral discs demonstrated are multiple levels. The aorta is mildly ectatic with mural calcification. There is no soft tissue swelling. Impression: No acute injury identified Degenerative changes of the lumbar spine. [facility] has communicated the preliminary results to the Emergency Department. Their findings are largely concordant with this report. The CT scanner at [facility] is accredited by the [employer] and the scans are performed using dose optimization techniques as appropriate to a performed exam including Automatic Exposure control.
--- NOTE | 2017-09-03 11:42 | Diagnostic Imaging Report ---
Indication: Abdominal pain Technique: Continuous helical transaxial imaging of the abdomen and pelvis was obtained from the lung bases to the pubic symphysis during intravenous contrast administration. Coronal 2-D reformats were also obtained. Study obtained in a Siemens sensation [address] Automatic Exposure Control was utilized. Total Dose length Product (DLP): 663.[address] Dose Index Volume (CTDIvol): 13.01 mGy Comparison: None Findings: The lung bases are clear. Gallstone noted. The liver is low in attenuation. There is a left renal cyst. Left lower quadrant colostomy demonstrated. A broad-based hernia of the anterior abdominal wall demonstrated containing fat and loops of small bowel. The aorta shows moderate mural calcification. There is slight fusiform dilatation of the distal part of the abdominal aorta measuring about 3 cm. The bladder is moderately distended. IMPRESSION: Cholelithiasis. Left lower quadrant colostomy. Broad-based ventral hernia. Left renal cyst 3 cm fusiform dilatation lower abdominal aorta. [facility] has communicated the preliminary results to the Emergency Department. Their findings are largely concordant with this report. The CT scanner at [facility] is accredited by the [employer] and the scans are performed using dose optimization techniques as appropriate to a performed exam including Automatic Exposure control.
[2017-09-03] MEDS ORDERED: Norco 5mg/325mg tab ORAL PRN (12:15)
[2017-09-03 12:29] VITALS: BP 109/74
--- NOTE | 2017-09-03 12:37 | GI Progress Note ---
Assessment/Plan Problems: (1) Abdominal pain ICD Codes: R10.9 - Unspecified abdominal pain SNOMED: 97171015 (2) Severe malnutrition ICD Codes: E43 - Unspecified severe protein-calorie malnutrition SNOMED: 44171468 (3) Electrolyte imbalance ICD Codes: E87.8 - Other disorders of electrolyte and fluid balance, not elsewhere classified SNOMED: 519387435 (4) Ileostomy present ICD Codes: Z93.2 - Ileostomy status SNOMED: 365133719 (5) History of Crohn's disease ICD Codes: Z87.19 - Personal history of other diseases of the digestive system SNOMED: 058926296254846 (6) Generalized pain ICD Codes: R52 - Pain, unspecified SNOMED: 30060077 Status: stable Status Narrative Discussed with Dr. Chavarria. Assessment/Plan abdominal U/S reviewed >> unremarkable hx of crohns vs UC s/p total colectomy with ileostomy placement ESR/CRP elevation symptomatic treatment pain mgmt PT eval ileostomy care daily/prn ppi regular diet fu labs, CEA The patient was seen and examined at bedside and all new and available data was reviewed in the patients chart. I agree with the above findings, impression and plan. (Patient seen earlier today. Signature stamp does not reflect patient encounter time.). - Altaf Chavarria MD Subjective Subjective BLE pain Objective Last 24 Hour Vital Signs Date Time Temp Pulse Resp B/P (MAP) Pulse Ox O2 Delivery O2 Flow Rate FiO2 09/03/17 12:29 98.1 70 18 109/74 96 09/03/17 12:20 98.2 09/03/17 08:00 98.2 70 19 104/63 98 09/03/17 04:00 98.1 72 18 103/65 97 09/03/17 00:00 97.8 71 18 109/58 97 09/02/17 19:53 97.9 69 18 114/59 97 09/02/17 15:27 97.5 79 20 100/51 97 09/02/17 12:47 98.1 Intake and Output 09/02/17 09/03/17 19:00 07:00 Intake Total 600 ml Output Total 900 ml 300 ml Balance -300 ml -300 ml Intake Oral 600 ml Output Urine Total 300 ml Stool Total 600 ml 300 ml Laboratory Tests Test 2/14/18 05:10 White Blood Count 10.1 K/UL (4.8-10.8) Red Blood Count 4.71 M/UL (4.70-6.10) Hemoglobin 15.8 G/DL (14.2-18.0) Hematocrit 47.2 % (42.0-52.0) Mean Corpuscular Volume 100 FL (80-99) H Mean Corpuscular Hemoglobin 33.6 PG (27.0-31.0) H Mean Corpuscular Hemoglobin Concent 33.5 G/DL (32.0-36.0) Red Cell Distribution Width 12.5 % (11.6-14.8) Platelet Count 151 K/UL (150-450) Mean Platelet Volume 10.0 FL (6.5-10.1) Neutrophils (%) (Auto) 59.2 % (45.0-75.0) Lymphocytes (%) (Auto) 22.5 % (20.0-45.0) Monocytes (%) (Auto) 11.4 % (1.0-10.0) H Eosinophils (%) (Auto) 5.6 % (0.0-3.0) H Basophils (%) (Auto) 1.3 % (0.0-2.0) Erythrocyte Sedimentation Rate 30 MM/HR (0-20) H Sodium Level 136 MMOL/L (136-145) Potassium Level 3.4 MMOL/L (3.5-5.1) L Chloride Level 98 MMOL/L (98-107) Carbon Dioxide Level 28 MMOL/L (21-32) Anion Gap 10 mmol/L (5-15) Blood Urea Nitrogen 27 mg/dL (7-18) H Creatinine 1.4 MG/DL (0.55-1.30) H Estimat Glomerular Filtration Rate mL/min (>60) Glucose Level 94 MG/DL (74-106) Calcium Level 9.7 MG/DL (8.5-10.1) Phosphorus Level 2.6 MG/DL (2.5-4.9) Magnesium Level 1.8 MG/DL (1.5-2.4) Total Bilirubin 0.7 MG/DL (0.2-1.0) Aspartate Amino Transf (AST/SGOT) 24 U/L (15-37) Alanine Aminotransferase (ALT/SGPT) 16 U/L (12-78) Alkaline Phosphatase 65 U/L (46-116) C-Reactive Protein, Quantitative 3.1 mg/dL (0.00-0.90) H Total Protein 8.1 G/DL (6.4-8.2) Albumin 3.6 G/DL (3.4-5.0) Globulin 4.5 g/dL Albumin/Globulin Ratio 0.8 (1.0-2.7) L Amylase Level 40 U/L (10-110) Lipase 69 U/L (73-393) L Prostate Specific Antigen 0.36 ng/mL (0.13-4.0) Microbiology Date/Time Source Procedure Growth Status 09/02/17 16:30 Urine,Clean Catch Urine Culture - Preliminary Resulted Height (Feet): 6 Height (Inches): 0.00 Weight (Pounds): 170 General Appearance: WD/WN, no apparent distress, alert, thin Cardiovascular: normal rate Respiratory/Chest: normal breath sounds, no respiratory distress Abdominal Exam: normal bowel sounds, non tender, soft, other - ventral hernia x 2 / illeostomy Extremities: normal range of motion, non-tender Amanda Beckford N.PRima Sep 03, 2017 12:37 SAKSHI CHAVARRIA Sep 08, 2017 09:08
[2017-09-03] MEDS ORDERED: traMADol 50mg tab ORAL PRN (14:15)
--- NOTE | 2017-09-03 15:24 | Pulmonology Progress Note ---
Assessment/Plan Problems: (1) Abdominal pain (2) Generalized pain (3) History of Crohn's disease (4) Severe malnutrition (5) Electrolyte imbalance Assessment/Plan GI evaluation appreciated CT abdomen reviewed pt wants to go home now K supplement Pt/ot Subjective ROS Limited/Unobtainable: No Constitutional: Reports: no symptoms HEENT: Repors: no symptoms Allergies: Coded Allergies: No Known Allergies (Unverified , 09/01/17) Objective Last 24 Hour Vital Signs Date Time Temp Pulse Resp B/P (MAP) Pulse Ox O2 Delivery O2 Flow Rate FiO2 09/03/17 13:19 98.1 09/03/17 12:29 98.1 70 18 109/74 96 09/03/17 12:20 98.2 09/03/17 08:00 98.2 70 19 104/63 98 09/03/17 04:00 98.1 72 18 103/65 97 09/03/17 00:00 97.8 71 18 109/58 97 09/02/17 19:53 97.9 69 18 114/59 97 09/02/17 15:27 97.5 79 20 100/51 97 Intake and Output 09/02/17 09/03/17 19:00 07:00 Intake Total 600 ml Output Total 900 ml 300 ml Balance -300 ml -300 ml Intake Oral 600 ml Output Urine Total 300 ml Stool Total 600 ml 300 ml Objective General Appearance: no apparent distress Head: normocephalic, atraumatic Eyes: bilateral eye PERRL, bilateral eye EOMI ENT: normal pharynx, no angioedema Neck: supple, thyroid normal Respiratory: lungs clear, normal breath sounds Cardiovascular #1: regular rate, rhythm Gastrointestinal: non tender, soft, colostomy present ext: no c/c/e Microbiology Date/Time Source Procedure Growth Status 09/02/17 16:30 Urine,Clean Catch Urine Culture - Preliminary Resulted Laboratory Tests 09/03/17 05:10: White Blood Count 10.1, Red Blood Count 4.71, Hemoglobin 15.8, Hematocrit 47.2, Mean Corpuscular Volume 100H, Mean Corpuscular Hemoglobin 33.6H, Mean Corpuscular Hemoglobin Concent 33.5, Red Cell Distribution Width 12.5, Platelet Count 151, Mean Platelet Volume 10.0, Neutrophils (%) (Auto) 59.2, Lymphocytes ( %) (Auto) 22.5, Monocytes (%) (Auto) 11.4H, Eosinophils (%) (Auto) 5.6H, Basophils (%) (Auto) 1.3, Erythrocyte Sedimentation Rate 30H, Sodium Level 136, Potassium Level 3.4L, Chloride Level 98, Carbon Dioxide Level 28, Anion Gap 10, Blood Urea Nitrogen 27H, Creatinine 1.4H, Estimat Glomerular Filtration Rate , Glucose Level 94, Calcium Level 9.7, Phosphorus Level 2.6, Magnesium Level 1.8, Total Bilirubin 0.7, Aspartate Amino Transf (AST/SGOT) 24, Alanine Aminotransferase (ALT/SGPT) 16, Alkaline Phosphatase 65, C-Reactive Protein, Quantitative 3.1H, Total Protein 8.1, Albumin 3.6, Globulin 4.5, Albumin/ Globulin Ratio 0.8L, Amylase Level 40, Lipase 69L, Prostate Specific Antigen 0.36 Current Medications Medications (Trade) Dose Ordered Sig/Curtis Route PRN Reason Start Time Stop Time Status Last Admin Dose Admin Acetaminophen (Tylenol) 650 mg Q4H PRN ORAL fever 09/01/17 15:00 10/01/17 14:59 Acetaminophen (Tylenol) 650 mg Q6H PRN ORAL Mild Pain (Pain Scale 1-3) 09/02/17 11:15 10/02/17 11:14 09/02/17 11:48 Acetaminophen/ Hydrocodone Bitart ([place] 5/325) 1 tab Q4H PRN ORAL mod-severe pain 09/03/17 12:15 09/10/17 12:14 09/03/17 12:20 Al Hydroxide/Mg Hydroxide (Mylanta II) 30 ml Q6H PRN ORAL dyspepsia 09/01/17 15:00 10/01/17 14:59 Dextrose (Dextrose 50%) STAT PRN IV Hypoglycemia 09/01/17 15:00 10/01/17 14:59 Lorazepam (Ativan 2mg/ml 1ml) 0.5 mg Q4H PRN IV For Anxiety 09/01/17 15:00 09/08/17 14:59 09/03/17 09:56 Ondansetron HCl (Zofran) 4 mg Q6H PRN IVP Nausea & Vomiting 09/01/17 15:00 10/01/17 14:59 09/01/17 15:59 Polyethylene Glycol (Miralax) 17 gm HSPRN PRN ORAL Constipation 09/01/17 15:00 10/01/17 14:59 Potassium Chloride (K-Dur) 40 meq DAILY ORAL 09/03/17 09:00 10/03/17 08:59 09/03/17 09:34 Tramadol HCl (Ultram) 50 mg Q6H PRN ORAL FOR MODERATE PAIN 09/03/17 14:15 09/10/17 14:14 Zolpidem Tartrate (Ambien) 5 mg HSPRN PRN ORAL Insomnia 09/01/17 15:00 09/08/17 14:59 09/02/17 22:13 CIELO ORTIZ Sep 03, 2017 15:24
[2017-09-03] MEDS ORDERED: NORCO 5-325 TA1 EACH ORAL (15:27)
[2017-09-03] MEDS ORDERED: TRAMADOL HCL50 MG ORAL (15:27)
[2017-09-03 16:00] VITALS: BP 107/72
--- NOTE | 2017-09-04 16:01 | Discharge Summary ---
Discharge Summary Hospital Course Date of Admission Sep 01, 2017 at 08:48 Date of Discharge Sep 03, 2017 at 17:20 Admitting Diagnosis ABDOMINAL PAIN, GENERALIZED WEAKNESS HPI September Jeanne is a 81 year old male who was admitted on Sep 01, 2017 at 08:48 for Generalized Weakness Hospital Course [id number] Discharge Discharge Disposition Patient was discharged to Home with Home Health(06) Discharge Diagnoses: Jacklyn Villegas NP Sep 04, 2017 16:01
--- NOTE | 2017-09-05 00:45 | Discharge Summary 2 SIG ---
DATE OF ADMISSION: 09/01/2017 DATE OF DISCHARGE: 09/03/2017 RESPIRATORY PRACTITIONER: Aroldo Chavarria M.D. BRIEF HOSPITAL COURSE: The patient is an 81-year-old male with history of chronic Crohn's disease/ulcerative colitis with colectomy and colostomy, who presented with three days of generalized body pain and abdominal pain. Pain was located on the left side and radiates to the back down to the left leg. He complained of poor p.o. intake and had lots of nausea, but no vomiting. No diarrhea. He complained of pain on the back whenever he moves. On evaluation at ED, blood work showed hypokalemia, potassium of 2.2. Lipase was not elevated. There was no leukocytosis. Attempted to do a CT scan, however, the patient would not lie still and was uncooperative. He had an abdominal ultrasound that showed no definite aneurysm. Chest x-ray showed no acute disease. He was then admitted for evaluation of abdominal pain and Crohn's disease. He was initially placed on NPO and was started on IV fluids. He was seen by GI and was given symptomatic treatment. He was given ileostomy care. He underwent CT scan of the abdomen and pelvis and spine that showed cholelithiasis with broad-based ventral hernia. Spine CT showed no acute injury with degenerative changes on the lumbar spine. Diet was advanced. He was given potassium replacement. He was given PT and OT. He came in with coccygeal DTI pressure ulcer and was given wound care. He was tolerating diet well and was eventually discharged home with home health. FINAL DIAGNOSES: 1. Abdominal pain. 2. Crohn's disease. 3. Severe malnutrition. 4. Hypokalemia. 5. Ileostomy. 6. Generalized pain. 7. Coccygeal area deep tissue injury pressure ulcer, present on admission. DISPOSITION: The patient was discharged home with home health. DISCHARGE MEDICATIONS: Continue with pain medications at home. Angeles Chin M.D. I have been assigned to dictate discharge summary on this account and I was not involved in the patient's management. Jacklyn Villegas N.P. DR: Tj JOB#: [id number] CC:
--- NOTE | 2017-09-10 22:07 | Diagnostic Imaging Report ---
APPROVED REPORT CPT Code: 74542 Present Symptoms Comments: R/O DVT BILATERAL: Imaging reveals a patent deep venous system bilaterally. There is no evidence of thrombus within the femoral, popliteal or tibial segments. The greater saphenous veins are also within normal limits. Doppler indicates normal spontaneous flow within these segments.
== END 2017-09-03 17:20 | disposition home health service (06) | DRG 391 ==
LOC: EDBD 06:38 → EMR 08:02 → 4W 08:48 → EDBEDREQ 08:58
DX: R10.9 Unspecified abdominal pain (principal); E43 Unspecified severe protein-calorie malnutrition; L89.150 Pressure ulcer of sacral region, unstageable; E87.8 Other disorders of electrolyte and fluid balance, not elsewhere classified; K51.90 Ulcerative colitis, unspecified, without complications; Z43.2 Encounter for attention to ileostomy; K80.20 Calculus of gallbladder without cholecystitis without obstruction; K43.9 Ventral hernia without obstruction or gangrene
CPT/HCPCS: 36415; 71045; 72131; 74177; 76705; 80053; 80061; 81003; 82150; 82378; 83690; 83735; 84100; 84153; 84443; 84484; 85007; 85025; 85651; 86140; 87086; 93005; 93970; 99285; J2405; J8499